=== PATIENT | female | born 1960 | race Caucasian/White ===

== ENCOUNTER 2025-09-03 16:00 | Outpatient (CLI) | payer OTHER, SELFPAY ==
--- NOTE | 2025-09-03 10:00 | DI.RAD_ITS ---
Exam(s) XR KNEE LT 4V AP,LAT,YAN,PAT EXAM: XR KNEE LT 4V AP,LAT,YAN,PAT CLINICAL HISTORY: LEFT KNEE PAIN. TECHNIQUE: 2D digital imaging was performed of the left knee. Four images were obtained. Merchant,AP, lateral and PA tunnel views were obtained. COMPARISON: CR KNEE from 04/25/2018 FINDINGS: BONES: No acute fracture is present. No bony destructive lesion is seen. JOINTS: There is marked joint space narrowing of the patellofemoral joint. There osteophytes in all 3 joint compartments. There is joint space narrowing in the femoral tibial joint upon standing. No joint effusion is seen. No loose body. SOFT TISSUE: Normal. IMPRESSION: There are marked degenerative changes seen in the left knee. DATA REPOSITORY: RADIATION DOSE DELIVERED:
== END 2025-09-03 16:01 | disposition home or self-care (01) ==
LOC: DIORS 16:00
PROVIDERS: PCP Physician Assistant Medical; Visit Provider Student in an Organized Health Care Education/Training Program
DX: M25.562 Pain in left knee (principal); M17.12 Unilateral primary osteoarthritis, left knee
CPT/HCPCS: 73564